=== PATIENT | female | born 1955 | race Caucasian/White ===

== ENCOUNTER → 2019-02-14 | Outpatient (CLI) | payer OTHER | LOC: M.MRI 13:03 | DX: S83.241A Other tear of medial meniscus, current injury, right knee, initial encounter (principal); M25.761 Osteophyte, right knee; M17.11 Unilateral primary osteoarthritis, right knee; X58.XXXA Exposure to other specified factors, initial encounter; Y93.89 Activity, other specified; Y92.89 Other specified places as the place of occurrence of the external cause; Y99.8 Other external cause status ==

== ENCOUNTER 2019-05-21 06:12 | Inpatient (IN) | payer OTHER ==
[2019-05-10 09:10] LABS: ABSOLUTE EOSINOPHILS 0.1 thou/uL (0.0-0.7); ABSOLUTE LYMPHOCYTES 1.6 thou/uL (0.8-5.3); ABSOLUTE MONOCYTES 0.4 thou/uL (0.0-1.2); ABSOLUTE NEUTROPHILS 3.5 thou/uL (1.6-8.1); BASOPHILS 0.3 %; EOSINOPHILS 1.1 %; HEMATOCRIT 41.9 % (37.0-47.0); HEMOGLOBIN 14.4 gm/dL (12.0-15.0); LYMPHOCYTES 29.1 %; MCH 30.6 pg (26.0-34.0); MCHC 34.4 g/dL (28.0-37.0); MONOCYTES 6.6 %; MPV 8.8 fl. (7.2-11.1); NUCLEATED RBCS 0 /100WBC; PLATELET COUNT* 220 thou/uL (150-400); POLYS 62.9 %; RBC 4.71 mil/uL (4.20-5.00); RDW-CV 13.3 % (10.5-14.5); WBC 5.6 thou/uL (4.0-11.0)
[2019-05-10 09:16] LABS: CALCIUM 9.3 mg/dL (8.5-10.1); CREATININE 0.8 mg/dL (0.6-1.3); POTASSIUM 4.1 mmol/L (3.5-5.1)
[2019-05-10 09:17] LABS: APTT 25.9 Seconds (25.0-31.3)
[2019-05-10 09:20] LABS: ALBUMIN 3.9 g/dL (3.4-5.0); TOTAL BILIRUBIN 0.5 mg/dL (<0.1-1.0); TOTAL PROTEIN 7.3 g/dL (6.4-8.2)
--- NOTE | 2019-05-10 10:56 | EKG ---
[place] [address] ELECTROCARDIOGRAM REPORT Name: PAT LUNA Room: [facility]..#: [id number] Admission: Attend Phys: Jameel Corral DO Discharge: Date of : 57 Report #: [id number] THIS REPORT FOR: //name// [facility] Test Date: 2019-05-10 Test Time: 09:26:29 Pat Name: PAT LUNA Department: Room: Gender: F Precision Honer: KAREN : 1955 Requested By: Jameel Corral Order Number: [id number] Reading MD: Jhonatan Anaya Measurements Intervals [place] Rate: 93 P: 51 SC: 171 QRS: -16 QRSD: 90 T: 37 QT: 354 QTc: 441 Interpretive Statements Sinus rhythm Borderline left axis deviation Low voltage, precordial leads RSR' in V1 or V2, right VCD or RVH Compared to ECG 12/14/2006 04:35:09 Low QRS voltage now present RSR' in V1 or V2 now present Sinus tachycardia no longer present Electronically Signed On 05-10-2019 10:56:10 CDT by Jhonatan Anaya [email or web address] <ELECTRONICALLY SIGNED> By: Jhonatan Anaya MD, FACC 05/10/19 1056 0926 0926 Jhonatan Anaya MD, [facility] /EPI
[2019-05-10 11:06] LABS: ESR (SEDRATE) 10 mm/hr (0-30)
[~2019-05-21] VITALS: Ht 162.6 cm; Wt 79.4 kg
[~2019-05-21 06:12] MED LIST: COZAAR100 MG PO; MULTIVITAMINS1 EAC7 PO; PROTONIX40 M1 PO; SYNTHROID25 MC1 PO; TRAMADOL 50 MG50 MG PO
[2019-05-21 06:30] VITALS: BP 151/66
--- NOTE | 2019-05-21 11:20 | NUR ---
PT ARRIVED TO FLOOR FROM PACU ABOUT 1050. PT STABLE. IV PATENT. DRESSING C/D/I. ICE PACK, SCDs AND TEDs IN PLACE. PAIN RATED 2/10. DENIED N/V. HAS NOT AMBULATED. FALL PRECAUTIONS IN PLACE. CALL LIGHT WITHIN REACH. WILL CONTINUE TO MONITOR.
[2019-05-21 11:36] VITALS: BP 154/72
--- NOTE | 2019-05-21 15:07 | NUR ---
ORDER RECEIVED FOR OT EVAL AND TREAT. PHYSICAL THERAPY CONSULTED AND STATING THAT THERE IS NO NEED FOR OCCUPATIONAL THERAPY SERVICES AT THIS TIME.
[2019-05-21 16:30] VITALS: BP 143/77
--- NOTE | 2019-05-21 17:53 | NUR ---
PT A&Ox4. VITALS STABLE. PAIN CONTROLLED WITH OXY IR. GOT UP TO CHAIR WITH THERAPY. UP WITH 1 USING GAIT BELT AND WALKER. IV PATENT. DENIED N/V. TOLERATING DIET. DRESSING IS C/D/I. TEDs, SCDs AND ICE PACK IN PLACE. FALL PRECAUTIONS IN PLACE. CALL LIGHT WITHIN REACH. WILL CONTINUE TO MONITOR.
[2019-05-21 21:10] VITALS: BP 136/58
[2019-05-22] VITALS: BP 116/46
[2019-05-22 04:00] VITALS: BP 127/56
[2019-05-22 04:31] LABS: HEMATOCRIT 29.9 % (37.0-47.0); HEMOGLOBIN 10.2 gm/dL (12.0-15.0)
--- NOTE | 2019-05-22 05:39 | NUR ---
PATIENT HAS SLEPT OFF AND ON DURING THE SHIFT. VSS ON RA. PAIN CONTROLLED WITH ORAL PAIN MEDICATION AND CHARTED. ASSESSMENT CHARTED. PATIENT IS UP WITH ASSIST X 1 WITH [place] AND [place] [facility] DRESSING TO RIGHT KNEE IS C/D/I, AND ICE PACK, MARIANA HOSE AND SCD'S IN PLACE. FALL PRECAUTIONS IN PLACE. PATIENT INSTRUCTED TO USE CALL LIGHT WHEN NEEDING ASSISTANCE. HOURLY ROUNDS MADE. WILL CONTINUE WITH PLAN OF CARE AND NURSING TO MONITOR.
--- NOTE | 2019-05-22 07:03 | OP ---
[address] [address] OPERATIVE REPORT Name: PAT LUNA Room: [address] IN .R.#: [id number] Admission: 05/21/19 Attend Phys: Jonah Madrid Discharge: Date of : 57 Report #: [id number] THIS REPORT FOR: //name// CC: Margie Ellis DICTATED BY: Saul Antoine DO DATE OF SERVICE: 05/21/2019 PREOPERATIVE DIAGNOSIS: Right knee advanced degenerative joint disease. POSTOPERATIVE DIAGNOSIS: Right knee advanced degenerative joint disease. OPERATION PERFORMED: Right total knee arthroplasty. SURGEON: Jameel Corral DO ASSISTANTS: Kristin Qureshi PA-C and Saul Antoine DO IMPLANTS: A B[employer]ill[employer] Journey system was used with the following components: 1. A size #4 Oxinium femoral component, posterior stabilized. 2. A size #3 Journey tibial base plate. 3. A size #11 mm thickness articular insert. 4. A 29 mm oval patellar component. 5. One bag of Palacos bone cement. ANTIBIOTICS: 2 grams IV Ancef. Also, 2 g of powdered vancomycin was used intraoperatively. ANESTHESIA: General plus local infiltration. ESTIMATED BLOOD LOSS: 100 mL. DRAINS: None. SPECIMENS: None. COMPLICATIONS: None. CONDITION: Stable. DISPOSITION: PACU to medical/surgical floor. [address] [place] [address] OPERATIVE REPORT Name: PAT LUNA Room: [address] IN .R.#: [id number] Admission: 05/21/19 Attend Phys: Jonah Madrid Discharge: Date of : 57 Report #: [id number] INDICATIONS FOR SURGERY: The patient is a pleasant 64-year-old female who had been followed in the orthopedic clinic regarding her longstanding right knee pain. She had x-rays, which were consistent with severe degenerative changes with joint loss and joint space, subchondral sclerosis, osteophytic lipping. She had tried and failed conservative treatment over the last year, including multiple intra-articular steroid injections, physical therapy, and nonsteroidal anti-inflammatory medications by mouth. Despite all these things she continued to have unrelenting pain, which was interfering with her quality of life. Therefore, we did discuss and recommend a right total knee arthroplasty. Risks and indications treatment alternatives were discussed with the patient in detail and her informed consent was signed. DESCRIPTION OF PROCEDURE: The patient was identified in the preoperative holding area, her questions were answered. The right knee was confirmed to be the operative site by the patient and marked. She was taken to the operating suite and placed on the operating table in supine position where general anesthesia was then induced. A well-padded pneumatic tourniquet was placed on the right proximal thigh. Of note, this was inflated at 295 mmHg throughout the procedure for a total of 48 minutes. The right lower extremity was then sterilely prepped and draped in the usual fashion. A time-out was then performed to confirm that our safety checklist was then completed. All the OR personnel was in agreement. The standard anterior midline incision was marked out over the anterior aspect of the knee. The extremity was elevated and the tourniquet was inflated. The 20 blade scalpel was then used to sharply dissect through the skin and subcutaneous tissue down to the level of the extensor mechanism. A new blade was then used to make our standard medial parapatellar arthrotomy. A flap was developed on the subperiosteal proximal tibia. The patella was then everted. The infrapatellar fat pad was excised. Retractors were placed. The intramedullary drill was introduced into the femur, followed by the intramedullary guide for distal femur cutting block, which was set to resect 10 mm at 5 degrees of valgus. This was pinned into position and checked with the elvsi wing. The cut was then made through the capture block. Attention was then taken to our proximal tibia. The extramedullary tibial guide was aligned in all planes and pinned into position. This was set to resect 9 mm from the lateral high side. This was also confirmed with the elvis wing. The collateral ligaments and popliteal structures were protected as was the patellar tendon and the reciprocating saw was used to make the proximal tibial cut through the capture block. The bony wafers were then removed weeks. We checked our extension block and a 10 mm block did fit nicely. Therefore, the pins were removed. The knee was once again hyperflexed. We sized the distal femur to the appropriate size and 3-degree external rotation holes were drilled and the 5-in-1 cutting block was impacted into position and pinned. The reciprocating saw was then used to make the cuts through the block. The bony wafers were then removed. At this time, the ACL and PCL were excised as were the meniscal remnants. The posterior osteophytes were also removed with the rongeur as were the medial osteophytes. The proximal tibia was then sized and an [address] [address] OPERATIVE REPORT Name: PAT LUNA Room: [address] IN Carmela#: [id number] Admission: 05/21/19 Attend Phys: Jonah Madrid Discharge: Date of : 57 Report #: [id number] appropriate-size based baseplate was pinned into position. We confirmed the appropriate rotation with a drop alma. The femoral trial was then impacted on to the distal femur. Multiple-sized articular inserts were then placed, confirming that we had full range of motion and excellent stability in all planes. Attention was taken to the patella. There were significant degenerative changes. We did use a rongeur to remove osteophytes and then the Quantifeed reaming system was used to resurface the patella to a 14 mm thickness, which left us with a nice flush cut surface. The patellar-sizing guide was then used to select the appropriate size drill guide in the and 3 peg holes were drilled through the patellar guide. The patellar button was then placed and placed through a full range of motion and found to be tracking appropriately. Also, prior to this, we did make the femoral box cut utilizing the guide with the reamer and punch. Excess bone was removed with rongeur prior to the trial femur being placed. At this time, the trial femur and patella were removed. The tibia was prepared for final implantation with the drill and punch. All the trial components were then removed. The knee was copiously irrigated with pulsatile lavage. The posterior capsular structures and the surrounding periosteum were injected with the anesthetic cocktail. The bone cement was mixed on the back table and applied to the back surface of the final components. The knee was dried and the cement was pressurized by hand into the inner stitches of the bone, beginning with the tibia, followed by the femur and the patellar component. The final components were impacted into position. All the excess bone cement was removed. The trial tibial bearing was placed and the knee was placed in full extension, while the patellar component was clamped into position. The clamp was removed. The knee was taken through full range of motion. We selected the 11 mm spacer as our final component. A trial spacer was then removed. The knee was once again copiously irrigated and pieces of cement removed from the back of the knee. We then placed the final spacer trial component and this was locked into position. The knee was finally taken through full range of motion and was found to have 0-135 degrees of motion with excellent stability in all planes. The knee was taken to full extension, copiously irrigated one more time. The vancomycin powder was sprinkled throughout. The knee was then placed in 90 degrees of flexion and a layered closure was then performed with a #1 Vicryl in lppnyj-pu-bqots fashion in the capsule layer, which was then over-sewn with the large double ended Stratafix suture. The subcutaneous layer was then re-approximated with 2-0 Monocryl sutures in buried fashion. The subcuticular layer was then run together with 3-0 Stratafix suture. Skin glue was applied and allowed to dry, Mepilex dressing was then applied, followed by MARIANA arredondo. Sponge and needle counts were correct x 2 per [place] [address] OPERATIVE REPORT Name: PAT LUNA Room: [address] [place] M.R.#: [id number] Admission: 05/21/19 Attend Phys: Jonah Madrid Discharge: Date of : 57 Report #: [id number] ATTESTATION: Dr. Jameel Corral was present for the entirety of the procedure including all the vital portions. <ELECTRONICALLY SIGNED> By: Chepe Gustafson DO 05/22/19 0703 1111 1212Robert Johnathan Corral DO /nir
[2019-05-22 07:55] VITALS: BP 130/69
--- NOTE | 2019-05-22 12:00 | NUR ---
MET WITH PT AND SPOUSE TO DISCUSS HOME SITUATION/DC PLANNING. PT LIVES WITH SPOUSE. HE PLANS TO BE AT HOME WITH HER AT DC. PT HAS WALKER AND PLANS TO DO OUTPT THERAPY AT [facility] AFTER DC. SHE USES [facility]. CALLED IN BOB SCRIPT IN CHART, COPAY IS $0. PT C/O OF UNCONTROLLED PAIN AND NOT SLEEPING, NURSE MADE AWARE. ANTICIPATE DC TOMORROW. WILL FOLLOW
[2019-05-22 15:57] VITALS: BP 130/69
--- NOTE | 2019-05-22 17:17 | NUR ---
PT REMAINED ALERT AND ORIENTED. PT RESTING IN ROOM. PAIN MEDS GIVEN ORDERED. FALL RISK PRECAUTIONS IN PLACE. HOURLY ROUNDING COMPLETED. WILL CONTINUE TO MONITOR.
[2019-05-22 20:30] VITALS: BP 155/74
[2019-05-23 05:17] LABS: HEMATOCRIT 28.6 % (37.0-47.0)
--- NOTE | 2019-05-23 07:08 | NUR ---
PATIENT WAS ABLE TO AMBULATE TO RESTROOM AND TO CHAIR, DID WELL. HER PAIN WAS WELL MANAGED ON PO SCHEDULED TRAMADOL AND SHE DID REQUEST PAIN MEDS AROUND 0500 SO I GAVE HER OXYCODONE 10MG IR ALONG WITH TRAMADOL. SHE WAS ABLE TO SELLP THROUGH THE NIGHT. UP IN CHAIR AT 0530. DOCTOR HAS SEEN HER THIS MORNING AND WILL CONTINUE TO MONITOR. SHE MAY D/C TODAY PENDING PAIN MANAGEMENT AND ABX AND PT/OT.
[2019-05-23 07:25] VITALS: BP 138/62
[2019-05-23] MEDS ORDERED: OXYCODONE HCL 55 MG PO (08:09)
[2019-05-23] MEDS ORDERED: ELIQUIS5 MG PO (08:09)
[2019-05-23] MEDS ORDERED: ASPIRIN325 PO (09:58)
[2019-05-23 09:59] VITALS: BP 130/69
[2019-05-23 11:34] VITALS: BP 130/69
--- NOTE | 2019-05-23 13:38 | NUR ---
PT GIVEN DISCHARGE INFORMATION, CARE NOTES, AND PRESCRIPTIONS. OUTPATIENT THERAPY ORDERED AND SET UP. BLOOD THINNER CALLED IN. IV REMOVED. PT BELONGINGS GATHERED. PT LEFT VIA WHEELCHAIR WITH NURSING STAFF TO HOME. FALL RISK PRECAUTIONS IN PLACE. HOURLY ROUNDING COMPLETED. WILL CONTINUE TO MONITOR.
[2019-05-23 14:08] VITALS: BP 130/69
--- NOTE | 2019-05-23 15:30 | NUR ---
FAXED DISCHARGE ORDERS TO [facility] [phone]. CALLED AND CONFIRMED WITH [facility] THAT THEY DID RECEIVE ORDERS AND THEY WILL CALL PT.TO SET UP APPTS.
== END 2019-05-23 14:08 | disposition home or self-care (01) | DRG 470 ==
LOC: M.SUR 06:12 → M.ORTHSURG 09:54 → M.TBA 09:54 → M.ORTHSURG 10:47 → M.SUR 11:10 → M.ORTHSURG 05-23 14:08
PROVIDERS: Orthopaedic Surgery; ADMIT Internal Medicine
PROC: 0SRC069 Replacement of Right Knee Joint with Oxidized Zirconium on Polyethylene Synthetic Substitute, Cemented, Open Approach (ICD-10-PCS; principal; 2019-05-21)
DX: M17.11 Unilateral primary osteoarthritis, right knee (principal); D62 Acute posthemorrhagic anemia; E03.9 Hypothyroidism, unspecified; I10 Essential (primary) hypertension; Z88.1 Allergy status to other antibiotic agents; Z90.710 Acquired absence of both cervix and uterus; Z98.42 Cataract extraction status, left eye; Z98.41 Cataract extraction status, right eye; Z87.891 Personal history of nicotine dependence; Z79.899 Other long term (current) drug therapy

== ENCOUNTER 2019-06-01 15:19 | Emergency (ER) | payer OTHER ==
[~2019-06-01] VITALS: Ht 162.6 cm; Wt 79.4 kg
[~2019-06-01 15:19] MED LIST changes: +ASPIRIN325 PO; +ELIQUIS5 MG PO; +OXYCODONE HCL 55 MG PO
[2019-06-01 15:58] LABS: ABSOLUTE BASOPHILS 0.1 thou/uL (0.0-0.2); ABSOLUTE EOSINOPHILS 0.1 thou/uL (0.0-0.7); ABSOLUTE LYMPHOCYTES 2.2 thou/uL (0.8-5.3); ABSOLUTE MONOCYTES 0.8 thou/uL (0.0-1.2); ABSOLUTE NEUTROPHILS 7.8 thou/uL (1.6-8.1); BASOPHILS 0.5 %; EOSINOPHILS 1.3 %; HEMATOCRIT 32.5 % (37.0-47.0); HEMOGLOBIN 10.8 gm/dL (12.0-15.0); LYMPHOCYTES 19.7 %; MCH 29.7 pg (26.0-34.0); MCHC 33.4 g/dL (28.0-37.0); MONOCYTES 7.4 %; MPV 7.9 fl. (7.2-11.1); NUCLEATED RBCS 0 /100WBC; PLATELET COUNT* 572 thou/uL (150-400); POLYS 71.1 %; RBC 3.65 mil/uL (4.20-5.00); RDW-CV 13.5 % (10.5-14.5)
[2019-06-01 16:06] LABS: ANION GAP 11 mmol/L (7-16); BUN 20 mg/dL (7-18); CALCIUM 9.1 mg/dL (8.5-10.1); CHLORIDE 96 mmol/L (98-107); CO2 27 mmol/L (21-32); CREATININE 0.9 mg/dL (0.6-1.3); GLUCOSE 159 mg/dL (70-99); SODIUM 134 mmol/L (136-145)
[2019-06-01 16:16] LABS: APTT 26.8 Seconds (25.0-31.3); PROTIME 10.3 Seconds (9.20-11.50)
[2019-06-01 16:21] LABS: ALBUMIN 3.3 g/dL (3.4-5.0); ALKALINE PHOSPHATASE 74 U/L (46-116); NT-PRO BRAIN NAT PEPTIDE 35 pg/mL (<300); SGOT 20 U/L (15-37); SGPT 26 U/L (30-65); TOTAL BILIRUBIN 1.1 mg/dL (<0.1-1.0); TOTAL PROTEIN 7.4 g/dL (6.4-8.2); TROPONIN-I LEVEL <0.06 ng/mL (<0.06)
[2019-06-01 18:05] VITALS: BP 125/79
--- NOTE | 2019-06-02 09:54 | EKG ---
[place] [address] ELECTROCARDIOGRAM REPORT Name: PAT LUNA Room: [facility]#: [id number] Admission: 06/01/19 Attend Phys: Discharge: 06/01/19 Date of : 57 Report #: [id number] THIS REPORT FOR: //name// [facility] ED Test Date: 2019-06-01 Test Time: 15:26:24 Pat Name: PAT LUNA Department: Room: Gender: F Power Distributor: : 1955 Requested By: Roberto Prabhakar Order Number: [id number] MD: Christiano Riggs Measurements Intervals [place] Rate: 95 P: 45 MN: 140 QRS: -2 QRSD: 77 T: 48 QT: 338 QTc: 425 Interpretive Statements Sinus rhythm Abnormal R-wave progression, early transition Compared to ECG 05/10/2019 09:26:29 Right ventricular hypertrophy no longer present Electronically Signed On 06-02-2019 9:54:10 CDT by Christiano Riggs [email or web address] <ELECTRONICALLY SIGNED> By: Johnathan Riggs MD, [facility] 06/02/19 0954 1526 1526 Johnathan Riggs MD, [facility] /EPI
== END 2019-06-01 18:06 | disposition home or self-care (01) ==
LOC: M.ERS 15:19
PROVIDERS: Family Medicine
DX: R06.00 Dyspnea, unspecified (principal); E03.9 Hypothyroidism, unspecified; I10 Essential (primary) hypertension; Z88.8 Allergy status to other drugs, medicaments and biological substances; Z90.89 Acquired absence of other organs; Z96.641 Presence of right artificial hip joint; Z90.710 Acquired absence of both cervix and uterus; Z96.651 Presence of right artificial knee joint

== ENCOUNTER → 2021-01-07 | Outpatient (CLI) | payer OTHER | LOC: M.NUC 01-06 08:25 | PROVIDERS: ATTEND Orthopaedic Surgery | DX: M17.12 Unilateral primary osteoarthritis, left knee (principal) ==

== ENCOUNTER → 2021-02-17 | Outpatient (CLI) | payer OTHER | LOC: M.RAD 15:22 | PROVIDERS: ATTEND Family Medicine | DX: M81.0 Age-related osteoporosis without current pathological fracture (principal); Z78.0 Asymptomatic menopausal state ==

== ENCOUNTER → 2021-03-03 | Outpatient (CLI) | payer OTHER ==
[~2021-03-03] MED LIST changes: +CELEBREX 200 M200 M1 PO; +NEURONTIN 300M300 M2 PO
[2021-03-03 10:09] LABS: ABSOLUTE EOSINOPHILS 0.1 thou/uL (0.0-0.7); ABSOLUTE LYMPHOCYTES 1.9 thou/uL (0.8-5.3); ABSOLUTE MONOCYTES 0.5 thou/uL (0.0-1.2); ABSOLUTE NEUTROPHILS 2.8 thou/uL (1.6-8.1); BASOPHILS 0.5 %; EOSINOPHILS 1.6 %; HEMATOCRIT 37.7 % (37.0-47.0); HEMOGLOBIN 12.9 gm/dL (12.0-15.0); MCH 30.5 pg (26.0-34.0); MCHC 34.3 g/dL (28.0-37.0); MCV 89.1 fL (80.0-100.0); MONOCYTES 10.2 %; MPV 8.3 fl. (7.2-11.1); NUCLEATED RBCS 0 /100WBC; PLATELET COUNT* 192 thou/uL (150-400); POLYS 52.7 %; RBC 4.23 mil/uL (4.20-5.00); RDW-CV 13.7 % (10.5-14.5); WBC 5.3 thou/uL (4.0-11.0)
[2021-03-03 10:21] LABS: ALBUMIN 3.8 g/dL (3.4-5.0); CALCIUM 9.3 mg/dL (8.5-10.1); CREATININE 0.7 mg/dL (0.6-1.3); POTASSIUM 4.1 mmol/L (3.5-5.1); TOTAL BILIRUBIN 0.3 mg/dL (<0.1-1.0)
[2021-03-03 10:22] LABS: APTT 24.9 Seconds (25.0-31.3); INR 0.9; PROTIME 9.7 Seconds (9.20-11.50)
[2021-03-03 11:11] LABS: ESR (SEDRATE) 12 mm/hr (0-30)
--- NOTE | 2021-03-03 14:10 | EKG ---
[place] [address] ELECTROCARDIOGRAM REPORT Name: LUNAPAT Room: [facility]#: [id number] Admission: 03/03/21 Attend Phys: Jameel Corral DO Discharge: Date of : 57 Date of Service: 03/03/21 1025 Report #: [id number] THIS REPORT FOR: //name// [facility] Test Date: 2021-03-03 Test Time: 10:25:38 Pat Name: PAT LUNA Department: Room: Gender: F Broker: : 1955 Requested By: Jameel Corral Order Number: [id number] Reading MD: Anthony Gupta Measurements Intervals [place] Rate: 70 P: 35 [place]: 146 QRS: -11 QRSD: 88 T: 34 QT: 399 QTc: 431 Interpretive Statements Sinus rhythm Low voltage, precordial leads Compared to ECG 06/01/2019 15:26:24 Low QRS voltage now present Electronically Signed On 03-03-2021 14:09:49 CDT by Anthony Gupta [email or web address] <ELECTRONICALLY SIGNED> By: Anthony Gupta MD, [facility] 03/03/21 1409 1025 1025 Anthony Gupta MD, [facility] /EPI
[2021-03-04 02:06] LABS: GLYCOHEMOGLOBIN (HGB A1C) 5.9 % (4.8-5.6)
== END ==
LOC: M.LAB 09:48
PROVIDERS: ATTEND Orthopaedic Surgery
DX: M17.12 Unilateral primary osteoarthritis, left knee (principal)

== ENCOUNTER 2021-03-09 09:16 | Observation (INO) | payer OTHER ==
[~2021-03-09] VITALS: Ht 162.6 cm; Wt 79.4 kg
--- NOTE | ~2021-03-09 | OP ---
[address] [address] OPERATIVE REPORT Name: PAT LUNA Room: [address] Carlton Casey#: [id number] Admission: 03/09/21 Attend Phys: Jameel Corral DO Discharge: 03/10/21 Date of : 57 Report #: [id number] THIS REPORT FOR: cc: Margie Ruiz MD, Cabot L. MD Paul, Robert F. DO ~ DOC #: [id number] Jameel Corral DO DATE OF SURGERY: 03/09/2021 PREOPERATIVE DIAGNOSIS: Advanced degenerative joint disease of the left knee. POSTOPERATIVE DIAGNOSIS: Advanced degenerative joint disease of the left knee. PROCEDURE: Left total knee arthroplasty. SURGEON: Jameel Corral DO LUMBER PILER OPERATOR: ALFA Zafar ANESTHESIA: General anesthetic with a peripheral block. ESTIMATED BLOOD LOSS: Less than 250 mL. COMPLICATIONS: None. ANTIBIOTICS: 2 grams Ancef IVPB 30 minutes prior to incision. IMPLANTS: Biomet Vanguard total knee system with a 71 mm fixed cruciate tibial plate with locking bar, 65 mm cruciate retained left femoral component, 31 mm asymmetric patella, 71 mm tibial bearing with 10 mm thickness, two bone cements, one TXA IV preop and 1 gram of vancomycin powder topically intraoperatively. INDICATION FOR SURGERY: The patient is a 65-year-old female with longstanding severe left knee pain. She is here today for elective surgical intervention. Risks and complications were discussed in detail, may be found on her preoperative clinic note. I reviewed those with her today as well as her family who was present. All questions were answered. A signed informed consent was attached to the chart, may refer to. Her knee is marked preoperatively for timeout technique. DESCRIPTION OF PROCEDURE: The patient was taken to the operating suite and placed on the operating room table in the supine position. Following general LMA anesthetic, the left knee was prepped and draped in a usual sterile fashion with tourniquet in the proximal left thigh, which is not utilized during the procedure. Time-out technique was utilized to verify appropriate surgical site, [place] [address] OPERATIVE REPORT Name: PAT LUNA Room: [address] Lanny.#: [id number] Admission: 03/09/21 Attend Phys: Jameel Corral DO Discharge: 03/10/21 Date of : 57 Report #: [id number] procedure concerns, allergies and implants. An incision was then made midline across the long axis of the knee. The incision was carried through skin and subcutaneous tissue down to the extensor mechanism. A median parapatellar incision was then performed. The kneecap was everted. The knee was flexed to 120 degrees. Eburnated bone was present throughout the entire knee. Osteophytes were removed at this time with a rongeur. With a distal femoral drill holes performed, intramedullary guide was placed at 5 degrees of valgus alignment and 10 mm from the most distal aspect of the femur. Once pinned into place the intramedullary alma was removed, the distal femur was resected. The cutting block was then removed. An external tibial guide was then aligned in all planes. The tibia was then resected 8 mm from the highest point on the tibia after pinning a cutting block into place utilizing appropriate varus valgus alignment and rotational alignment as well as appropriate slope. At this time, all meniscal structures were removed as well. The femur was then measured anterior to posterior and a 3-degree external alignment drill hole was made for placement of the 4-in-1 cutting block. The appropriate block was impacted firmly in place. Anterior, posterior condylar cuts followed by anterior, posterior chamfer cuts were performed. The cutting block was removed. All bony wafers were removed. A trial tibia was then inserted, aligned in all planes and a drop alma was utilized to verify rotational alignment. This was then pinned into place. A trial femur was then impacted firmly onto the distal femur, cheating just slightly laterally. A trial spacer was inserted and the knee was placed through range of motion. The 10 mm spacer gave excellent range of motion from 0-135 degrees with excellent stability and negative drawer's test at 90 degrees. With the knee in extension, the patella was freehand cut to a remaining 16 mm thick patella. Patella was measured, drilled and a trial button was applied. The knee was placed through range of motion once again, found to have anatomic alignment and anatomic tracking of the patella with no tendency towards subluxation or dislocation. Final components were then obtained. Trial components were removed. Prior to removing the femur, the final drill holes were made for the pegged femur. Prior to removing the tibia, the large reamer was utilized followed by the cruciform jig for the final finned tibial tray. Posterior capsule of the knee was injected with the anesthetic solution. Copious irrigation carried out throughout the bones with pulsatile lavage followed by thorough drying. Two bags of Biomet cement were mixed on the back table, placed immediately onto the posterior aspect of each of the components. The cement was then placed into the interstices of bone with pressurization. The components were then impacted firmly into place. All excess cement was removed sharply. A 10 mm spacer was placed in the knee and the knee was held in extension, patellar clamp was applied. All excess cement once again was checked and removed sharply. A final 10 mm spacer was placed in the knee and after thorough irrigation and topical sprinkling of vancomycin powder throughout the entire incision, the knee was held at 90 degrees of flexion until complete cement hardening had occurred. It should be noted that throughout the procedure, hemostasis was achieved with the use of electro[place] [address] OPERATIVE REPORT Name: CHERYLPAT Room: [address] Carlton Casey#: [id number] Admission: 03/09/21 Attend Phys: Jameel Corral DO Discharge: 03/10/21 Date of : 57 Report #: [id number] pressure. No tourniquet was necessary. The knee was closed with #1 Vicryl in wwkcry-[id number]-bujsn fashion, sutured to the extensor mechanism. This was then reinforced with a running #1 Quill throughout the entire extensor mechanism. The skin was reapproximated with 2-0 Monocryl subcutaneous suture followed by running 3-0 Stratafix subcuticular suture. Skin was reinforced with Dermabond glue. Once dry, Mepilex dressing was applied followed by thigh high MARIANA hose. The patient was taken to recovery room in stable condition. No complications were encountered. Final instrument counts and sponge counts were correct x 2. Jameel Corral DO RFP/TANNER By: 1455 1744Robert Johnathan Corral DO /nir
[~2021-03-09 09:16] MED LIST changes: -CELEBREX 200 M200 M1 PO; -NEURONTIN 300M300 M2 PO
[2021-03-09 12:43] VITALS: BP 119/69
[2021-03-09 20:00] VITALS: BP 134/72
[2021-03-09 23:32] VITALS: BP 142/78
[2021-03-10 04:35] LABS: HEMATOCRIT 32.8 % (37.0-47.0); HEMOGLOBIN 11.3 gm/dL (12.0-15.0)
[2021-03-10 08:06] VITALS: BP 128/47
[2021-03-10] MEDS ORDERED: NEURONTIN 300M300 M2 PO (10:10)
[2021-03-10] MEDS ORDERED: OXYCODONE HCL 55 MG PO (10:10)
[2021-03-10] MEDS ORDERED: CELEBREX 200 M200 M1 PO (10:10)
[2021-03-10] MEDS ORDERED: ELIQUIS5 MG PO (10:10)
[2021-03-10 15:11] VITALS: BP 128/47
[2021-03-10 15:58] VITALS: BP 128/47
== END 2021-03-10 15:50 | disposition home or self-care (01) ==
LOC: M.ORTHSURG 09:16 → M.TBA 11:33 → M.ORTHSURG 11:33
PROVIDERS: ADMIT Orthopaedic Surgery; ATTEND Orthopaedic Surgery
DX: M17.12 Unilateral primary osteoarthritis, left knee (principal); J93.9 Pneumothorax, unspecified; Z79.01 Long term (current) use of anticoagulants; Z79.899 Other long term (current) drug therapy; Z96.651 Presence of right artificial knee joint